=== PATIENT | male | born 1970 | race Caucasian/White ===

== ENCOUNTER → 2017-10-13 09:33 | Outpatient (CLI) | payer OTHER, SELFPAY ==
[2017-10-13 09:46] LABS: Bacteria Urine None Seen; RBC Urine None Seen (0-5/HPF); WBC Urine None Seen (0-5/HPF)
[2017-10-13 10:26] LABS: Add Manual Diff / Slide Review NO; Basophils Percent Auto 0.7 % (0-2); Eosinophils Percent Auto 2.5 % (2-4); Hematocrit 46.2 % (41-53); Hemoglobin 16.2 g/dL (13.5-17.5); Lymphocytes Percent Auto 26.8 % (25-40); Mean Corpuscular Hemoglobin 30.1 PG (26-34); Mean Corpuscular Volume 85.8 fL (80-100); Monocytes Percent Auto 6.6 % (3-14); Neutrophils Absolute Auto 5200 /uL (3000-5900); Neutrophils Percent Auto 63.4 % (50-75); Platelet Count 278 X10^3/uL (150-400); Red Blood Cell Count 5.38 X10^6/uL (4.5-5.9); Red Cell Distribution Width 13.1 % (11.6-14.8); White Blood Cell Count 8.2 X10^3/uL (4.5-11.0)
[2017-10-13 10:37] LABS: Appearance Urine UA CLEAR; Bilirubin Urine UA 3+ (NEGATIVE); Color Urine UA YELLOW; Glucose Urine UA 1+ g/dL (Negative); Ketones Urine UA NEGATIVE (NEGATIVE); Leukocyte Esterase Urine UA NEGATIVE (NEGATIVE); Nitrite Urine UA Negative (Negative); Occult Blood Urine UA NEGATIVE (Negative); Protein Urine UA TRACE (Negative); Specific Gravity Urine UA 1.025 (1.000-1.035); Urobilinogen Urine UA 0.2 E.U./dL (0.2)
[2017-10-13 10:52] LABS: Culture Indicated Urine Cult Not Indicated; Mucus Urine 1+ (Negative); Sperm Urine 1+
[2017-10-13 11:11] LABS: BUN Creatinine Ratio 18.8 (6-22); Calcium 9.6 mg/dL (8.4-10.2); Estimated Glomerular Filt Rate > 60.0 mL/min (>60); Glucose 181 mg/dL (70-100); HEMOLYSIS 22 (0-50); Potassium 4.3 mmol/L (3.4-5.1); Sodium 136 mmol/L (137-145)
[2017-10-13 11:52] LABS: Ictotest Urine Negative (Negative)
[2017-10-16 01:52] LABS: Hemoglobin A1C% w Est Avg Glu 7.2 % (4.0-6.0)
== END ==
PROVIDERS: PCP Orthopaedic Surgery; Visit Provider Orthopaedic Surgery
DX: Z01.818 Encounter for other preprocedural examination (principal); Z01.812 Encounter for preprocedural laboratory examination; N39.9 Disorder of urinary system, unspecified; R73.09 Other abnormal glucose
CPT/HCPCS: 36415; 80048; 81001; 83036; 85025; 93005

== ENCOUNTER 2017-10-30 11:37 | Inpatient (IN) | payer OTHER, SELFPAY ==
[2017-10-17 15:57] VITALS: BMI 34.3
[2017-10-30] VITALS (14 sets, daily range): BP systolic 105–127; BP diastolic 64–91; PULSE 68–87; RESP 10–17; TEMP 36–37.2; O2SAT 92–100; BMI 34.3
--- NOTE | 2017-10-30 | DI.RAD.S_ITS ---
PROCEDURE: XR KNEE LT 1TO2V INDICATIONS: TOTAL LEFT KNEE TECHNIQUE: 3 view(s) of the knee acquired. COMPARISON: None. FINDINGS: Bones: Patient is status post knee joint arthroplasty. Hardware components are in expected positions. Visualized bony structures are intact. Soft tissues: Overlying postoperative changes are noted. IMPRESSION: Normal alignment after left total knee arthroplasty, with a surgical drain overlying the operative bed. Dictated by: Brian Moralez M.D. on 10/30/2017 at 18:55 Approved by: Brian Moralez M.D. on 10/30/2017 at 18:56
[2017-10-30] MEDS: LACTATED RINGERS 1,000 ML 42 ML IV ×3 (12:15→16:49)
[2017-10-30] MEDS: VANCOMYCIN 1,000 MG/200 ML FROZ.PIGGY 200 MG IV (13:13)
--- NOTE | 2017-10-30 14:58 | PM.PREOP ---
Pre-operative Note Interval Note Pre-op Check: History & Physical Reviewed by Physician
[2017-10-30] MEDS: CEFAZOLIN 1 GM VIAL 2 GM IV (15:00)
--- NOTE | 2017-10-30 15:02 | P.OP_ITS ---
Operative Date/Time/Diagnoses - Date of procedure: 10/30/17 Time of procedure: 14:59 Pre-op diagnosis: Left knee OA Post-op diagnosis: same Procedure & Clinicians Procedure: Left total knee Same procedure as scheduled: Yes Indications: The patient has had progressively worsening left knee pain with radiographic changes consistent with arthritis. Non-operative management has failed and the patient has requested total knee replacement. The risks, benefits and alternatives to surgery were discussed with the patient prior to proceeding. Risks discussed included, but were not limited to, failure to relieve pain, stiffness, infection, nerve damage, deep venous thrombosis, pulmonary embolism, stroke, coma, heart attack, permanent paralysis and , as well as the potential need for eventual revision of the prosthetic. Surgeon: Concepción Christiansen Asset Protection Greeter: Flori Whitaker Anesthesia Type: General and Spinal Operative Notes Findings: Severe left knee OA Closure Type: primary Specimen(s): none sent Implants & Drains: Christiansen and Nephew Marcin BCS2 femur 8, tibia 7, poly 9, patella 38 Applied: drain(s) Estimated Blood Loss (mL): 250 Blood products transfused: none Procedure in detail: The patient was seen in the pre-operative area, where the patient identified the left knee as the operative site and this was marked with my initials. The patient received pre-operative antibiotics, and was taken to the operating room and placed on the operative table in the supine position. After satisfactory anesthesia, a knife setter out was performed. The left leg was encircled with a tourniquet about the proximal thigh, and the leg was prepared from the toes to the tourniquet with ChloroPrep in the usual fashion and draped through sterile drapes. The leg was elevated and exsanguinated with Eschmark bandage and the tourniquet inflated to [250] mmHg pressure. The knee was approached through an approximately 18 cm incision centered over the patella and carried into the knee through a medial parapatellar arthrotomy. A portion of the medial and lateral meniscus was resected. Soft tissue was carefully mobilized around the patella the patella was measured with a caliper. Bone was resected from the patella and the patellar height was reconstituted with up an appropriate sized patellar component. For a cover was then placed on the patella. A small amount of additional medial and lateral meniscus was resected. The visionary guide fit well to the distal femur. It looked like an appropriate distal femoral cut and the cut was made without difficulty. The rotation was assessed and the appropriate size femoral guide was placed on the distal femur and finishing cuts were made. There is no evidence of notching. The anterior, posterior and chamfer cuts were then made. The posterior osteophytes and soft tissues were then removed. The posterior capsule was injected with part of a mixture of 60 ml 0.25% Marcaine mixed with 20 ml Exparel for post operative pain control. The remainder of this mixture was injected into the capsule and subcutaneous tissues during cement curing. The tibia was prepared and the visionaire guide fit well to the distal tibia. The rotation was assessed. The patient was placed in extension residual medial and lateral meniscus as well as any residual bone was carefully resected. 3mm additional tibia was resected. It was clearly too tight and I opened another saw blade and used both the +2mm cut as well as the 2mm recutting guide. Hemostasis was achieved especially posteriorly. Additional local was injected into the posterior capsule. The extension gap was assessed and additional releases for gap balancing were performed as necessary. It was checked with the gap flight crew scheduler. A few small puncture incisions were made in the MCL to further balance the knee. The femoral component was trial was placed and the notch was finished. Trial tibial and femoral components were then placed and the knee placed through a range of motion. Range of motion was [0-130], with good stability throughout the range. The trials were then removed, and the tibia was finished. The bone was prepared with pulsatile lavage, and dried with a sponge. Cement was applied and the final prosthetics placed. Excess cement was removed during and after cement curing. A brief Betadine soak was performed. After confirming there was no extruded cement posteriorly, the final tibial insert was placed. The knee was copiously irrigated and the tourniquet deflated. Hemostasis was obtained with the [Aquamantys system]. A drain was placed and brought out superolaterally. The capsule was closed with interrupted # 1 black braided suture. The subcutaneous layer was closed with barbed sutures, and the skin with a running 3 -0 V-Lock suture and Surgical glue. An Aquacel Ag dressing was applied and the patient was taken to recovery having tolerated the procedure well. Complications: none Condition: stable Disposition: Acute Care Plan for aftercare: The patient will be maintained on a standard total knee replacement protocol with weight bearing as tolerated. The patient will receive aspirin and sequential compression devices for DVT prophylaxis. The patient will be discharged home when safe for the home environment.
--- NOTE | 2017-10-30 15:46 | SUR.OPER ---
Supine on padded OR bed. Pillow under head, arms secured on padded armboards <90 degree abduction. Safety belt across torso. Non-operative leg secured with tape over blanket over lower leg. Operative leg secured in DeMayo/Fran positioner. Foam padded brace at thigh of operative leg.
[2017-10-30] MEDS: POVIDONE-IODINE 15 ML, SODIUM CHLORIDE 0.9% 250 ML TOP (16:08)
[2017-10-30] MEDS: BUPIVACAINE LIPOSOME 266 MG/20 ML VIAL INJ (16:11)
[2017-10-30] MEDS: BUPIVACAINE 0.25% W/ EPI 50 ML VIAL INJ (16:12)
--- NOTE | 2017-10-30 18:25 | SUR.PHASEI ---
REPORT CALLED TO ASHLEY VENEGAS ON ACUTE CARE FLOOR. PT IN STABLE CONDITION, VSS. IV SITE CLEAR AND INFUSING WITHOUT DIFFICULTLY. DRSG TO OPERATIVE KNEE C/D/I. DRAIN REMAINS CLAMPED AT THIS TIME. PT SITTING UP AND DRINKING COFFEE WITHOUT ANY DIFFICULTLY. PT DENIES ANY NAUSEA OR DISCOMFORT. OPERATIVE EXTREMITY WARM TO TOUCH, +PULSES AND CAP REFILL WNL. PT ABLE TO FEEL LOWER EXTREMITY R/T SPINAL.
[2017-10-30] MEDS: LACTATED RINGERS 1,000 ML 125 ML IV (19:30)
[2017-10-30] MEDS: ONDANSETRON 4 MG/2 ML INJ IV (19:52)
[2017-10-30] MEDS: METOCLOPRAMIDE 10 MG/2 ML INJ IV (20:30)
--- NOTE | 2017-10-30 21:15 | PC.NURSE ---
POST-OP Received pt at approximately 1840 via bed, accompanied by INDUSTRIAL GAS SERVICER. Ox3, pleasant and cooperative. states numbness/tingling to bilateral legs from toes to about upper thigh area. L knee reymundo wrap bandage intact, hemovac drain unclamped at 1930 via report. pt with nausea and 1 episode of emesis. medicated with PRN zofran and reglan, pt states nausea still present but no emesis. denies pain. MIVF running. SPORTS STATISTICIAN from home set up at bedside. oriented pt and significant other to room and call light. p[t [facility] a [facility], will communicate to oncoming RN to pass to day shift CM.
[2017-10-30] MEDS: DOCUSATE 100 MG CAPSULE PO (21:53)
[2017-10-30] MEDS: ATORVASTATIN 20 MG TABLET PO (21:53)
[2017-10-30] MEDS: NAPROXEN 250 MG TABLET 500 MG PO (21:53)
[2017-10-30] MEDS: ASPIRIN EC 81 MG TABLET PO (21:53)
[2017-10-30] MEDS: CEFAZOLIN VIAL 3 GM in SODIUM CHLORIDE 0.9% 100 ML 200 ML IV (22:22)
[2017-10-30] MEDS: METFORMIN HCL 500 MG TABLET 1000 MG PO (22:23)
[2017-10-31 02:01] VITALS: BP 115/74; PULSE 99; RESP 18; TEMP 37.3; O2SAT 94
[2017-10-31] MEDS: HYDROCODONE/ACET 5/325 TABLET 2 TAB PO ×3 (02:06→12:42)
[2017-10-31 03:36] VITALS: BP 112/65; PULSE 88; RESP 16; TEMP 37.7; O2SAT 94
[2017-10-31] MEDS: LACTATED RINGERS 1,000 ML 125 ML IV (03:55)
[2017-10-31 05:43] LABS: Hematocrit 38.7 % (41-53); Hemoglobin 13.3 g/dL (13.5-17.5)
--- NOTE | 2017-10-31 05:57 | PC.NURSE ---
Pt stood at bedside and tried to urinate;however, he was unable to void even after multiple attempts. Bladder scan: 688cc. straight cath output: 750cc. hemovac output at 0240: 200cc. no complaints of dizziness or lightheadedness. BP 112/65. ice packs applied on L.knee. ryan MIGUEL. VTO clamp drain for 1 hr. Total hemovac output for manufacturing shift supervisor was 250cc.
[2017-10-31] MEDS: CEFAZOLIN VIAL 3 GM in SODIUM CHLORIDE 0.9% 100 ML 200 ML IV (06:34)
[2017-10-31 07:17] VITALS: BP 106/67; PULSE 82; RESP 14; TEMP 36.7; O2SAT 97
[2017-10-31] MEDS: DOCUSATE 100 MG CAPSULE PO (08:06)
[2017-10-31] MEDS: ASPIRIN EC 81 MG TABLET PO (08:06)
[2017-10-31] MEDS: LISINOPRIL 20 MG TABLET PO (08:06)
[2017-10-31] MEDS: NAPROXEN 250 MG TABLET 500 MG PO (08:07)
[2017-10-31] MEDS: METFORMIN HCL 500 MG TABLET 1000 MG PO (08:13)
[2017-10-31] MEDS: SODIUM CHLORIDE 0.9% FLUSH 10 ML IV (10:28)
--- NOTE | 2017-10-31 12:31 | P.DS_ITS ---
History of Present Illness Date Patient Seen: 10/31/17 Time Patient Seen: 12:28 Chief complaint: [id number] LEFT TOTAL KNEE ARTHROPLASTY Narrative: Status post left total knee arthroplasty Discharge Providers Date of admission: 10/30/17 11:37 Primary care physician: Concepción Christiansen MD Consults: 10/30/17 18:51 Consult to Discharge Planning Routine Comment: Consult to Physical Therapy Evaluate & Treat Comment: Physician Instructions: postop TKA protocol Consult to Respiratory Therapy Evaluate & Treat Comment: Physician Instructions: Evaluate and treat Discharge provider: Kimberly Del Rio PA-C Summary Discharge Diagnosis: Status post left total knee arthroplasty Hospital Course: Mike admitted for left total knee arthroplasty with Dr. Christiansen and he consented to procedure. Hospital course was unremarkable. On postop day 1. He is feeling well and wanted to go home. He was urinating and eating without difficulty or assistance. Dressing on left knee was CDI. All drains and catheter was removed prior to discharge. He has medications at home already. Status at Discharge Functional status at discharge: uses cane/walker Exam Vital Signs (past 8 hours): Vital Signs - 8 hr 3 10/31/17 07:17 Temperature 98.1 F Pulse Rate 82 Respiratory Rate 14 Blood Pressure 106/67 Pulse Oximetry 97 Pulse Oximetry 97 Oxygen Delivery Method CPAP Oxygen Flow Rate 2 Narrative Exam Narrative: Patient is sitting at bedside chair in no acute distress. He is alert and oriented x3. Dressing on left knee is CDI. Hemovac in place but will be removed prior to discharge. Calves are soft, compressible, nontender bilaterally. Sensation intact to light touch throughout bilateral lower extremities. Pain is well controlled. Denies any chest pain or shortness of breath. Has been up ambulating with physical therapy today. Objective Labs Result Diagrams: 10/31/17 05:08 Labs: Laboratory Results - last 24 hr 10/31/17 05:08 Hgb 13.3 L Hct 38.7 L Discharge Plan Discharge Plan Patient Disposition: Home, Self-Care Discharge comment: DC home today after physical therapy this afternoon. Remove drain prior to discharge. Discharge Med Rec/Prescriptions Prescriptions: New aspirin 81 mg Tablet,Delayed Release (Dr/Ec) 81 mg PO BID Qty: 60 RF: 0 oxycodone-acetaminophen 5-325 mg Tablet 2 tab PO Q4HR PRN (Reason: Pain, Severe) Qty: 60 RF: 0 docusate sodium 100 mg Capsule 100 mg PO BID Qty: 60 RF: 0 Continue atorvastatin 20 mg Tablet 20 mg PO BEDTIME RF: 0 etodolac 300 mg Capsule 300 mg PO BID RF: 0 lisinopril 20 mg Tablet 20 mg PO DAILY RF: 0 acetaminophen [Tylenol Extra Strength] 500 mg Tablet 1,000 mg PO Q6H PRN (Reason: pain) RF: 0 metformin 1,000 mg Tablet 1,000 mg PO BID RF: 0 Follow up/Referrals: Concepción Christiansen MD [Primary Care Provider] - (Please follow up in 5-7 days with [facility]) Provider Discharge Instructions Activity: Total knee precautions Cold/Heat Therapy: Ice as needed Wound Care Report to your healthcare provider any signs of infection, such as:: chills, fever and increased pain Dressing: Please keep dressing in place for 10-14 days Visit Report/Discharge Packet Instructions: DI for Knee Replacement Discharge Data Primary Care Provider: Concepción Christiansen Attending Provider: Concepción Christiansen Admit Date/Time: 10/30/17 11:37 Quality VTE Deep Vein Thrombosis/Pulmonary Embolism Present on Admission: No
--- NOTE | 2017-10-31 12:32 | PT.IIE ---
Current Diagnoses Unilateral primary osteoarthritis, left knee (10/30/17) Surgery Performed Operation Date: 10/30/17 13:45 Actual Procedures p Total Knee Arthroplasty(Left) - Concepción Christiansen MD Surgical History (Last Reviewed 10/30/17 @ 18:54 by Mariposa Gastelum, RN) History of photorefractive keratectomy (Acute) Medical History (Last Updated 10/30/17 @ 18:55 by Mariposa Gastelum RN) Tonsillectomy planned (Acute) Arthritis (Acute) Chronic low back pain (Acute) Diabetes type 2, controlled (Acute) Dry skin (Acute) Hearing loss (Acute) Heartburn (Acute) History of bronchitis (Acute) History of headache (Acute) Impaired vision (Acute) Itchy skin (Acute) Knee pain, bilateral (Acute) Nocturia (Acute) Obstructive sleep apnea on CPAP (Acute) Osteoarthritis of left knee (Acute) Physical Therapy Inpatient Evaluation/Re-Eval M1 PT/OT-IP Prior Functional Status Start: 10/31/17 12:21 Freq: NEEDED Status: Active Protocol: Document 10/31/17 12:21 AB (Rec: 10/31/17 12:32 AB [id number]) Medical Review Prior Functional Status Medical History Reviewed Yes Mobility and Gait pt stated that he is indpendent with all mobilities and ambulation without AD Social History Household Members spouse children Living Arrangements House Number of Floors (Floors) Two Floors Number of Stairs To Enter/Railing? 3 steps with R rail to enter 13 steps wiht L rail ascending to get to bedroom level Home Environment Standard Height Toilet Walk in Shower Home Equipment Four Wheel Walker Straight Cane Hand Held Shower Employment Status Garbage Collector Employed Additional Social History Comment pt stated that he will be off work for ~ 1month. works as an IT. spouse also works but has flexible hours and can assist pt at home. M2 PT-IP Current Condition Start: 10/31/17 12:21 Freq: NEEDED Status: Active Protocol: Document 10/31/17 12:21 AB (Rec: 10/31/17 12:32 AB [id number]) Physical Therapy Current Condition Current Condition Evaluation Date 10/31/17 Treatment Diagnosis s/p L TKA Onset Date 10/30/17 Weight Bearing Status Weight Bearing Status Weight Bear as Tolerated M3 PT-IP Subjective Start: 10/31/17 12:21 Freq: NEEDED Status: Active Protocol: Document 10/31/17 12:21 AB (Rec: 10/31/17 12:32 AB [id number]) Subjective Physical Therapy Visit Type Type Initial Evaluation Visit Start Time 09:15 Visit Stop Time 10:28 Total Visit Minutes 73 Number of LAND TITLE EXAMINER Visits 0 Physical Therapy Visit Comments Patient Comments pt agreeable to do therapy Therapy Pain Assessment Pain When Pain Assessed At Rest Pain Present Pain Present Pain Reported Location Left Knee Intensity 2 Scale Used Numeric (1 - 10) Pain Management Techniques Apply Cold Timing of Activity with Medications M4 PT-IP Mobility and Gait Start: 10/31/17 12:21 Freq: NEEDED Status: Active Protocol: Document 10/31/17 12:21 AB (Rec: 10/31/17 12:32 AB [id number]) PT-Bed Mobility Assessment Supine to Sit Supine to Sit Standby Assistance Sit to Supine Sit to Supine Standby Assistance PT-Transfer Assessment Equipment Transfer Assistive Device Gait Belt Front Wheeled Walker Orthotic/Prosthetic Devices or Brace: No Transfers Transfer Destination Bed Chair Transfer Technique Stand Step Pivot Transfer Ability Level of Assist Standby Assistance Gait Assessment Gait Gait Assistance Required: Standby Assistance Contact Guard Assist Distance (Feet) (feet) 125 Able to Maintain Weight Bearing Status Yes During Gait Assistive Devices Assistive Device Gait Belt Front Wheeled Walker 4 Wheeled Walker Orthotic/Prosthetic Devices or Brace: No Gait Deviations General Gait Pattern Antalgic Decreased Stride Length Decreased Feet Clearance Step-to Gait Factors Limiting Gait Function Factors Limiting Gait Function Decreased Activity Tolerance Decreased Strength Pain Poor Balance Poor Safety Awareness Comments Gait Comments assessed safety with use of FWW and then with 4WW as pt has 4WW at this time to use at home. pt was able to manage 4WW safely during ambulation Stair Climbing Assessment Evaluation Level of Assist On Stairs Minimal Assistance Devices Stair Climbing Assistive Devices Left Railing Right Railing Technique/Endurance Stair Climbing Direction Ascend and Descend Stair Climbing Technique Step to Step Number of Steps Climbed 3 Query Text: Stair Climbing Set # Repetitions (reps) 4 Comments Stair Climbing Comments pt completed up/down 3 steps using R rail ascending min A and cues. pt holds on to rail with B hands. pt completed 3 steps again with L rail ascending CGA and cues. spouse instructed on how to assist pt. PT-Balance Assessment Sitting Balance and Reactions Static Sitting Balance Ability Good Dynamic Sitting Balance Ability Good Standing Balance and Reactions Static Standing Balance Ability Fair Dynamic Standing Balance Ability Fair M5 PT-IP Objective Assessments Start: 10/31/17 12:21 Freq: NEEDED Status: Active Protocol: Document 10/31/17 12:21 AB (Rec: 10/31/17 12:32 AB [id number]) Orientation Orientation/Cognition Level of Alertness Alert Orientation Name Age Birthday Month Date Year Day of Week Place Situation Safety Awareness Understands Safety Issues Gross Range of Motion Lower Extremity ROM Assessment Left Impaired Strength Lower Extremity Strength Assessment Left Impaired Hip 4/5 Knee 4-/5 Ankle 5/5 M6 PT-IP Treatment Start: 10/31/17 12:21 Freq: NEEDED Status: Active Protocol: Document 10/31/17 12:21 AB (Rec: 10/31/17 12:32 AB [id number]) Physical Therapy Treatment Education Education Provided Precautions Weight Bearing Status Post-Op Packet Safety M7 PT-IP Assessment and Plan Start: 10/31/17 12:21 Freq: NEEDED Status: Active Protocol: Document 10/31/17 12:21 AB (Rec: 10/31/17 12:32 AB [id number]) PT Summary Assessment and Plan Potential Rehabilitation Potential Good Status of Condition at Evaluation Stable Summary Impairments Pain ROM Strength Balance Bed Mobility Transfers Gait Activity Tolerance Assessment Summary pt requiring 1 person assist with mobility and spouse able to assist pt. pt is also set up for outpt PT already. Goals Bed Mobility Goal Independent Transfer Goal Independent Gait Goal Independent Gait Distance 150 Other Goals up/down 3 steps with one rail SBA Days to Meet Goals 3 Frequency of Treatment Frequency Of Treatment Twice a Day Treatment Plan Physical Therapy Treatment Plan Bed Mobility Training Transfer Training Gait Training Therapeutic Exercise Balance Retraining Post Op Education Discharge Planning Hot or Cold Pack Neuromuscular Re-ed Coordination Retraining Manual Therapy Other Recommendations and Next Treatment ambulation, stair climbing, Focus caregiver training Recommendations To Nursing Amount of Assist Needed 1 Person Assist Discharge Recommendations PT Discharge Recommendations Home with Assistance Outpatient PT Provider Visit Care Team Role Provider Type Concepción Christiansen MD Admit Provider Physician Attending Provider Primary Care Provider Specialty: Orthopedic Surgery
--- NOTE | 2017-10-31 13:00 | CM.DANOTE ---
DCP: assessment: case received, EMR reviewed, d/c to home order noted, met with pt and his Corby. Introduced self and role. DCP template filled out with info currently available. Pt is a 46 year old male who admitted yesterday for a planned L TKA. Surgeon: Dr. Lucille Christiansen Payer: [facility] Pt and his have worked with PT today says they feel comfortable with the plan for home later today, after the 2nd PT session. Pt has all DME needed and outpt PT is set up. No concerns re d/c today expressed by pt and or noted by this DCPlanner.
--- NOTE | 2017-10-31 15:07 | PC.NURSE ---
1506 Pt dcd to home with family. Escorted out via w/c. Pt given dc instructions. Hemovac dcd at 1400, covered site with guaze/tegaderm and the Alexander wrap to LLE reapplied.
== END 2017-10-31 15:06 | disposition home or self-care (01) | DRG 470 ==
PROVIDERS: Admitting Provider Orthopaedic Surgery; PCP Orthopaedic Surgery; Visit Provider Orthopaedic Surgery
PROC: 0SRD0JZ Replacement of Left Knee Joint with Synthetic Substitute, Open Approach (ICD-10-PCS; CPT 27447; principal; 2017-10-30 13:45)
DX: M17.12 Unilateral primary osteoarthritis, left knee (principal); G47.33 Obstructive sleep apnea (adult) (pediatric); E11.9 Type 2 diabetes mellitus without complications; Z87.891 Personal history of nicotine dependence; Z79.84 Long term (current) use of oral hypoglycemic drugs
CPT/HCPCS: 36415; 73560; 85014; 85018; 94760; 97161; 97530; C1776; C9290; J0690; J2250; J2274; J2405; J2704; J2765; J3370

== ENCOUNTER → 2022-02-22 10:41 | Outpatient (CLI) | payer OTHER, SELFPAY ==
[2017-10-30 19:19] VITALS: BMI 34.3
[2022-02-22 11:52] LABS: COVID19 -Nasal RAPID Negative (Negative)
== END ==
PROVIDERS: PCP Nurse Practitioner; Referring Provider Orthopaedic Surgery; Visit Provider Orthopaedic Surgery
DX: Z20.822 Contact with and (suspected) exposure to COVID-19 (principal)
CPT/HCPCS: 87635; C9803

== ENCOUNTER 2022-02-24 08:08 | Day surgery (SDC) | payer OTHER, SELFPAY ==
[2017-10-30 19:19] VITALS: BMI 34.3
[2022-02-15 13:42] VITALS: BMI 34.2
[2022-02-24] VITALS (13 sets, daily range): BP systolic 99–120; BP diastolic 62–81; PULSE 70–86; RESP 14–21; TEMP 36.1–37.6; O2SAT 91–99; BMI 34.2
--- NOTE | 2022-02-24 06:00 | DI.RAD.S_ITS ---
PROCEDURE: XR KNEE RT 1TO2V INDICATIONS: TKA right TECHNIQUE: 3 view(s) of the knee acquired. COMPARISON: [facility], CR, XR KNEE LT 1TO2V, 10/30/2017, 18:00. FINDINGS: Bones: Patient is status post knee joint arthroplasty. Hardware components are in expected positions. Visualized bony structures are intact. Soft tissues: Overlying postoperative changes are noted. IMPRESSION: Postop changes from right total knee arthroplasty with anatomic right knee alignment. Dictated by: Tripp Palacio M.D. on 02/24/2022 at 15:04 Approved by: Tripp Palacio M.D. on 02/24/2022 at 15:04
[2022-02-24] MEDS: LACTATED RINGERS 1,000 ML 100 ML IV ×3 (08:55→16:00)
[2022-02-24] MEDS: CELECOXIB 200 MG CAPSULE PO ×2 (09:00→09:01)
[2022-02-24] MEDS: ACETAMINOPHEN 325 MG TABLET 975 MG PO (09:02)
[2022-02-24] MEDS: VANCOMYCIN 1,000 MG/200 ML PIGGYBACK 200 MG IV (09:55)
--- NOTE | 2022-02-24 10:40 | PM.PREOP ---
Pre-operative Note COVID-19 COVID-19 status: Negative Interval Note History & Physical reviewed/Exam performed by Physician: Yes Changes to H&P: No
--- NOTE | 2022-02-24 10:40 | PM.OP.1 ---
Operative Date/Time/Diagnoses Date of procedure: 02/24/22 Time of procedure: 11:10 Pre-op diagnosis: Right knee OA Post-op diagnosis: same Procedure & Clinicians Procedure: Right total knee arthroplasty Same procedure as scheduled: Yes Indications: The patient has had progressively worsening right knee pain with radiographic changes consistent with arthritis. Non-operative management has failed and the patient has requested total knee replacement. The risks, benefits and alternatives to surgery were discussed with the patient prior to proceeding. Risks discussed included, but were not limited to, failure to relieve pain, stiffness, infection, nerve damage, deep venous thrombosis, pulmonary embolism, stroke, coma, heart attack, permanent paralysis and , as well as the potential need for eventual revision of the prosthetic. Surgeon: Concepción Christiansen Supervisor Seaming: Ximena Kellogg Anesthesia Type: General and Spinal Operative Notes Findings: Severe right knee osteoarthritis, good stability, good bone Closure Type: primary Prosthetic devices, grafts, tissues, transplants, or devices: [employer] BCS 2 size 7 femur, size 7 tibia, +10 poly, 38 mm round patella Estimated Blood Loss (mL): 250 Blood products transfused: none Tourniquet time (min): 104 Procedure in detail: The patient was seen in the pre-operative area, where the patient identified the right knee as the operative site and this was marked with my initials. The patient received pre-operative antibiotics, and was taken to the operating room and placed on the operative table in the supine position. After satisfactory anesthesia, a manager outreach out was performed. The right leg was encircled with a tourniquet about the proximal thigh, and the leg was prepared from the toes to the tourniquet with ChloroPrep in the usual fashion and draped through sterile drapes. The leg was elevated and exsanguinated with Eschmark bandage and the tourniquet inflated to [250] mmHg pressure. The knee was approached through an approximately 18 cm incision centered over the patella and carried into the knee through a medial parapatellar arthrotomy. A portion of the medial and lateral meniscus was resected. Soft tissue was carefully mobilized around the patella the patella was measured with a caliper. Bone was resected from the patella and the patellar height was reconstituted with up an appropriate sized patellar component. A cover was then placed on the patella. A small amount of additional medial and lateral meniscus was resected. The distal femur was cut at 5?. A [+2] cut was used. It looked like an appropriate distal femoral cut and the cut was made without difficulty. An extramedullary guide was used for the tibial cut. 10 mm was resected off the least affected side.The tibia was prepared. The rotation was assessed. The patient was placed in extension residual medial and lateral meniscus as well as any residual bone was carefully resected. [No] additional tibia was resected. Hemostasis was achieved especially posteriorly. Additional local was injected into the posterior capsule. The extension gap was assessed and additional releases for gap balancing were performed as necessary. It was checked with the gap websphere commerce consultant. The rotation was assessed and the appropriate size femoral guide was placed on the distal femur and finishing cuts were made. There was minimal feathering of the anterior cortex without significant evidence of notching. The anterior, posterior and chamfer cuts were then made. The posterior osteophytes and soft tissues were then removed. The posterior capsule was injected with part of a mixture of 60 ml 0.25% Marcaine mixed with 20 ml Exparel for post operative pain control. The femoral component trial was placed and the notch was finished. The rotation was specifically checked. The component was posteriorized about 1 mm. The remainder of this mixture was injected into the capsule and subcutaneous tissues during cement curing. The tibial and femoral components were then placed and the knee placed through a range of motion. Range of motion was [0-130], with good stability throughout the range. The trials were then removed, and the tibia was finished. The bone was prepared with pulsatile lavage, and dried with a sponge. Cement was applied and the final prosthetics placed. Excess cement was removed during and after cement curing. A brief Betadine soak was performed. After confirming there was no extruded cement posteriorly, the final tibial insert was placed. The knee was copiously irrigated and the tourniquet deflated. Hemostasis was obtained with the [Bovie cautery]. A drain was placed and brought out superolaterally. The capsule was closed with interrupted nonabsorbable suture. The subcutaneous layer was closed with barbed sutures, and the skin with a running 3-0 V-Lock suture and Surgical glue. An Aquacel Ag dressing was applied and the patient was taken to recovery having tolerated the procedure well. Complications: none Post-operative Condition: stable Disposition: same day surgery Plan for aftercare: The patient will be maintained on a standard total knee replacement protocol with weight bearing as tolerated. The patient will receive aspirin and sequential compression devices for DVT prophylaxis. The patient will be discharged home when safe for the home environment.
[2022-02-24] MEDS: CEFAZOLIN 2 GM/100 ML PREMIX 100 ML IV (11:00)
--- NOTE | 2022-02-24 12:03 | SUR.OPER ---
Supine on padded OR bed. Pillow under head, arms secured on padded armboards <90 degree abduction. Safety belt across torso. Non-operative leg secured with tape over blanket over lower leg. Operative leg secured in DeMayo/Fran/Nathe positioner. Foam padded brace at thigh of operative leg.
[2022-02-24] MEDS: BUPIVACAINE LIPOSOME 266 MG/20 ML VIAL INJ (12:17)
[2022-02-24] MEDS: TRANEXAMIC ACID 1,000 MG VIAL 2000 MG INJ ×2 (12:18→14:01)
[2022-02-24] MEDS: BUPIVACAINE 0.25% (PF) 60 ML, EPINEPHrine 0.3 MG INJ (12:18)
--- NOTE | 2022-02-24 16:19 | PT.IIE ---
Current Diagnoses Bilateral primary osteoarthritis of knee (02/24/22) Surgery Performed Operation Date: 02/24/22 10:45 Actual Procedures p Total Knee Arthroplasty(Right) - Concepción Christiansen MD Surgical History (Last Updated 02/15/22 @ 13:49 by Eulalia Chen, RN) History of photorefractive keratectomy History of total left knee replacement (10/30/17) Medical History (Last Updated 02/15/22 @ 13:51 by Eulalia Chen RN) Arthritis Chronic low back pain Diabetes type 2, controlled Dry skin Hearing loss Heartburn History of bronchitis History of headache HLD (hyperlipidemia) HTN (hypertension) Impaired vision Itchy skin Knee pain, bilateral Nocturia Obstructive sleep apnea on CPAP Osteoarthritis of left knee Tonsillectomy planned Physical Therapy Inpatient Evaluation/Re-Eval M1 PT/OT-IP Prior Functional Status Start: 02/24/22 17:09 Freq: NEEDED Status: Active Protocol: Document 02/24/22 16:19 AB (Rec: 02/24/22 17:26 AB [id number]) Medical Review Prior Functional Status Medical History Reviewed Yes Communication able to make needs known Mobility and Gait pt stated that he is independent with all mobilities and ambulation without AD Social History Household Members spouse,children Living Arrangements House Number of Floors (Floors) Two Floors Number of Stairs To Enter/Railing? 3 steps to enter with R side shelves 13 steps L rail ascending to bedroom level Home Environment Standard Height Toilet,Walk in Shower Home Equipment Four Wheel Walker,Straight Cane Employment Status Self-Employed Additional Social History Comment pt toilet safety frame pt has an adjustable bed works as in IT M2 PT-IP Current Condition Start: 02/24/22 17:09 Freq: NEEDED Status: Active Protocol: Document 02/24/22 16:19 AB (Rec: 02/24/22 17:26 AB [id number]) Physical Therapy Current Condition Current Condition Evaluation Date 02/24/22 Treatment Diagnosis s/p R TKA; difficulty in walking Onset Date 02/24/22 M3 PT-IP Subjective Start: 02/24/22 17:09 Freq: NEEDED Status: Active Protocol: Document 02/24/22 16:19 AB (Rec: 02/24/22 17:26 AB [id number]) Subjective Physical Therapy Visit Type Type Initial Evaluation Visit Start Time 16:19 Visit Stop Time 17:06 Total Visit Minutes 47 Number of VICE PRESIDENT PRECISION MARKET INSIGHTS Visits 0 Physical Therapy Visit Comments Patient Comments agreeable to do PT Therapy Pain Assessment Pain When Pain Assessed At Rest Pain Present Pain Present Pain Reported Location Left Knee Intensity 2 Scale Used increases with mobility Pain Behaviors Guarding Pain Management Techniques Apply Cold,Distraction, Elevation,Modification of Treatment,Re-positioning, Timing of Activity with Medications M4 PT-IP Mobility and Gait Start: 02/24/22 17:09 Freq: NEEDED Status: Active Protocol: Document 02/24/22 16:19 AB (Rec: 02/24/22 17:26 AB [id number]) PT-Bed Mobility Assessment Supine to Sit Supine to Sit Standby Assistance,Head of Bed Elevated Sit to Supine Sit to Supine Standby Assistance,Head of Bed Elevated PT-Transfer Assessment Sit to and From Stand Sit to and from Stand Minimal Assistance,1 Person Assistance,Use of Upper Extremities Equipment Transfer Assistive Device Gait Belt,Front Wheeled Walker Orthotic/Prosthetic Devices or Brace: No Transfers Transfer Destination Toilet Transfer Technique ambulated Transfer Ability Level of Assist Minimal Assistance,Use of Upper Extremities Comments Mobility Comments spouse in room with pt. pt agreeable to do PT. heel slides conducted prior to mobility. pt completed supine to sit SBA. able to sit on EOB SBA. pt can be impulsive. completed sit to stand min A and requested to use the toilet. ambulated to the toilet using FWW min A ~ 12 ft. pt. able to stand using FWW for support while spouse provides CGA with standing while using the toilet. pt then requested to sit on the toilet. turn and sat on the toilet using FWW min A and cues for safety. sit to stand from the toilet using grab bar min A. pt ambulated back to bed using FWW min A. completed sit to supine SBA. positioned pt in bed. call light and table placed within reach. caregiver training set up for tomorrow with spouse at 830 am . Gait Assessment Gait Gait Assistance Required: Minimum Assistance Distance (Feet) 12 Able to Maintain Weight Bearing Status Yes During Gait Assistive Devices Assistive Device Gait Belt,Front Wheeled Walker Orthotic/Prosthetic Devices or Brace: No Gait Deviations General Gait Pattern Antalgic,Decreased Stride Length,Decreased Feet Clearance,Wide Based Gait Factors Limiting Gait Function Factors Limiting Gait Function Decreased Activity Tolerance, Decreased Strength,Limited Range of Motion,Pain,Poor Balance,Poor Safety Awareness PT-Balance Assessment Sitting Balance and Reactions Dynamic Sitting Balance Ability Good Standing Balance and Reactions Static Standing Balance Ability Fair Dynamic Standing Balance Ability Fair Device Used FWW M5 PT-IP Objective Assessments Start: 02/24/22 17:09 Freq: NEEDED Status: Active Protocol: Document 02/24/22 16:19 AB (Rec: 02/24/22 17:26 [id number]) Orientation Orientation/Cognition Level of Alertness Alert Orientation Name,Age,Birthday,Month,Date, Year,Day of Week,Place, Situation Language Function Ability No Deficits Noted Safety Awareness Decreased Safety Awareness Memory Description No Deficits Noted Gross Range of Motion Lower Extremity ROM Impairments R knee flexion: ~ 50 deg Strength Lower Extremity Strength Assessment Right Impaired Hip 4-/5 Knee 3+/5 Coordination Assessment Gross Coordination Gross Coordination WNL Sensation Assessment Sensation Gross Sensation WNL Muscle Tone Muscle Tone WNL Yes M6 PT-IP Treatment Start: 02/24/22 17:09 Freq: NEEDED Status: Active Protocol: Document 02/24/22 16:19 AB (Rec: 02/24/22 17:26 AB [id number]) Physical Therapy Treatment Exercises Exercises Heel Slides Education Education Provided Precautions,Weight Bearing Status,Post-Op Packet,Safety M7 PT-IP Assessment and Plan Start: 02/24/22 17:09 Freq: NEEDED Status: Active Protocol: Document 02/24/22 16:19 AB (Rec: 02/24/22 17:26 [id number]) PT Summary Assessment and Plan Potential Rehabilitation Potential Good Status of Condition at Evaluation Evolving Summary Impairments Pain,ROM,Strength,Balance, Coordination,Sensation,Tone, Cognition,Bed Mobility, Transfers,Gait,Activity Tolerance Assessment Summary pt s/p R TKA and just had surgery this morning. pt requiring min A with mobility using FWW and can be impulsive . Caregiver training set up for tomorrow at 830 am. will continue to assess progress. Pt has outpt PT set up. Goals Bed Mobility Goal Independent Transfer Goal Independent,Front Wheeled Walker Gait Goal Independent,Front Wheel Walker Gait Distance 200 Other Goals up/down 3 steps SPC+ R wall/ shelving SBA up/down 13 steps L rail ascending SBA Days to Meet Goals 5 Frequency of Treatment Frequency Of Treatment Twice a Day Treatment Plan Physical Therapy Treatment Plan Bed Mobility Training,Transfer Training,Gait Training, Therapeutic Exercise,Balance Retraining,Post Op Education, Discharge Planning,Hot or Cold Pack,Neuromuscular Re-ed, Coordination Retraining,Manual Therapy Weight Bearing Status Weight Bearing Status Weight Bear as Tolerated Allowed Weight Bearing Amount (enter % RLE WBAT or #) (%) Recommendations To Nursing Amount of Assist Needed 1 Person Assist Discharge Recommendations PT Discharge Recommendations Home with Assistance, Outpatient PT Transportation Needs at Discharge Private Vehicle
[2022-02-24] MEDS: ACETAMINOPHEN 325 MG TABLET 650 MG PO (17:28)
[2022-02-24] MEDS: IBUPROFEN 400 MG TABLET PO ×2 (17:29→21:18)
--- NOTE | 2022-02-24 17:33 | PC.NURSE ---
Pt arrived from PACU at 1515, VSS, afebrile on RA. Initially he reports numbness to knees and below bilaterally. Then sensation progresses to full sensation in B LE's. KATIANA dressing is C/d/I with clean and dry acep wrap. He reports pain to R knee 2/10 and he is able to participate in PT this afternoon. at bedside supportive. Continuous monitoring. He tolerates 100% of dinner well. Awaitig pt to void. Bed alarm on, call light in reach.
[2022-02-24] MEDS: CEFAZOLIN VIAL 3 GM in SODIUM CHLORIDE 0.9% 100 ML IV (18:45)
[2022-02-24] MEDS: ASPIRIN EC 81 MG TABLET PO (21:18)
[2022-02-24] MEDS: ATORVASTATIN 20 MG TABLET PO (21:18)
[2022-02-24] MEDS: DOCUSATE 100 MG CAPSULE PO (21:19)
[2022-02-24] MEDS: OXYCODONE IR 10 MG TABLET PO (21:19)
[2022-02-25] VITALS: BP 111/61; PULSE 61; RESP 18; TEMP 37.1; O2SAT 98
[2022-02-25] MEDS: ACETAMINOPHEN 325 MG TABLET 650 MG PO ×3 (00:30→12:03)
[2022-02-25] MEDS: IBUPROFEN 400 MG TABLET PO ×4 (00:30→12:03)
[2022-02-25] MEDS: OXYCODONE IR 5 MG TABLET 10 MG PO ×3 (03:33→12:04)
[2022-02-25] MEDS: CEFAZOLIN VIAL 3 GM in SODIUM CHLORIDE 0.9% 100 ML IV (03:34)
[2022-02-25 04:00] VITALS: BP 109/68; PULSE 76; RESP 16; TEMP 36.9; O2SAT 98
[2022-02-25 07:32] LABS: Hematocrit 40.3 % (41-53); Hemoglobin 13.8 g/dL (13.5-17.5)
[2022-02-25 08:00] VITALS: BP 94/50; PULSE 83; RESP 16; TEMP 36.6; O2SAT 95
[2022-02-25] MEDS: METFORMIN HCL 500 MG TABLET PO (08:19)
[2022-02-25] MEDS: PANTOPRAZOLE DR 40 MG TABLET PO (08:19)
[2022-02-25] MEDS: lisinopriL 20 MG TABLET PO (08:19)
[2022-02-25] MEDS: DOCUSATE 100 MG CAPSULE PO (08:21)
[2022-02-25] MEDS: ASPIRIN EC 81 MG TABLET PO (08:21)
[2022-02-25 08:39] VITALS: RESP 18; O2SAT 97
--- NOTE | 2022-02-25 08:40 | PT.IPTN ---
Current Diagnoses Bilateral primary osteoarthritis of knee (02/24/22) Surgery Performed Operation Date: 02/24/22 10:45 Actual Procedures p Total Knee Arthroplasty(Right) - Concepción Christiansen MD Physical Therapy Treatment Note M2 PT-IP Current Condition Start: 02/24/22 17:09 Freq: NEEDED Status: Discharge Protocol: Document 02/24/22 16:19 AB (Rec: 02/24/22 17:26 AB [id number]) Physical Therapy Current Condition Current Condition Evaluation Date 02/24/22 Treatment Diagnosis s/p R TKA; difficulty in walking Onset Date 02/24/22 M3 PT-IP Subjective Start: 02/24/22 17:09 Freq: NEEDED Status: Discharge Protocol: Document 02/25/22 08:40 AB (Rec: 02/25/22 12:41 AB [id number]) Subjective Physical Therapy Visit Type Type Treatment Note Visit Start Time 08:40 Visit Stop Time 09:06 Total Visit Minutes 26 Number of BANDAGE WINDING MACHINE OPERATOR Visits 0 Physical Therapy Visit Comments Patient Comments agreeable to do PT; spouse in room for training Therapy Pain Assessment Pain When Pain Assessed At Rest Location Left Knee Intensity 2 Scale Used Numeric (0 - 10) Pain Management Techniques Distraction,Modification of Treatment,Re-positioning, Timing of Activity with Medications M4 PT-IP Mobility and Gait Start: 02/24/22 17:09 Freq: NEEDED Status: Discharge Protocol: Document 02/25/22 08:40 AB (Rec: 02/25/22 12:41 AB [id number]) PT-Bed Mobility Assessment Supine to Sit Supine to Sit Standby Assistance Sit to Supine Sit to Supine Standby Assistance PT-Transfer Assessment Sit to and From Stand Sit to and from Stand Contact Guard Assistance,1 Person Assistance,Use of Upper Extremities Equipment Transfer Assistive Device Gait Belt,Front Wheeled Walker Orthotic/Prosthetic Devices or Brace: No Transfers Transfer Destination Toilet Transfer Technique ambulated Transfer Ability Level of Assist Contact Guard Assistance,1 Person Assistance,Use of Upper Extremities Comments Mobility Comments spouse in room and assisted pt with bed mobility. spouse was able to put safety belt on pt and assisted pt with ambulation to the toilet using FWW. completed safely. spouse ambulated pt to the hallway towards the stair using FWW ~ 125 ft CGA and spouse was able to assist pt and provide cues. pt completed up/down steps using quad cane and R rail with spouse cueing and assisting pt. pt repeated x 2 sets. pt completed again using L rail and quad cane with spouse assisting. pt ambulated back to his room using fWW. agreed to sit on the chair. positioned on the chair. call light and table placed within reach. pt and spouse without any concerns. Gait Assessment Gait Gait Assistance Required: Contact Guard Assist Distance (Feet) 125 Able to Maintain Weight Bearing Status Yes During Gait Assistive Devices Assistive Device Gait Belt,Front Wheeled Walker Orthotic/Prosthetic Devices or Brace: No Gait Deviations General Gait Pattern Antalgic,Decreased Stride Length,Decreased Feet Clearance Factors Limiting Gait Function Factors Limiting Gait Function Decreased Activity Tolerance, Decreased Strength,Limited Range of Motion,Pain,Poor Balance,Poor Safety Awareness Stair Climbing Assessment Devices Stair Climbing Assistive Devices Small Base Quad Cane,Left Railing Technique/Endurance Stair Climbing Direction Ascend and Descend Stair Climbing Technique Step to Step Number of Steps Climbed 3 Stair Climbing Set # Repetitions (reps) 3 M5 PT-IP Objective Assessments Start: 02/24/22 17:09 Freq: NEEDED Status: Discharge Protocol: Document 02/24/22 16:19 AB (Rec: 02/24/22 17:26 AB [id number]) Orientation Orientation/Cognition Level of Alertness Alert Orientation Name,Age,Birthday,Month,Date, Year,Day of Week,Place, Situation Language Function Ability No Deficits Noted Safety Awareness Decreased Safety Awareness Memory Description No Deficits Noted Gross Range of Motion Lower Extremity ROM Impairments R knee flexion: ~ 50 deg Strength Lower Extremity Strength Assessment Right Impaired Hip 4-/5 Knee 3+/5 Coordination Assessment Gross Coordination Gross Coordination WNL Sensation Assessment Sensation Gross Sensation WNL Muscle Tone Muscle Tone WNL Yes M6 PT-IP Treatment Start: 02/24/22 17:09 Freq: NEEDED Status: Discharge Protocol: Document 02/25/22 08:40 AB (Rec: 02/25/22 12:41 AB [id number]) Physical Therapy Treatment Education Education Provided Safety M7 PT-IP Assessment and Plan Start: 02/24/22 17:09 Freq: NEEDED Status: Discharge Protocol: Document 02/25/22 08:40 AB (Rec: 02/25/22 12:41 AB [id number]) PT Summary Assessment and Plan Potential Rehabilitation Potential Good Summary Impairments Pain,ROM,Strength,Balance, Coordination,Sensation,Tone, Cognition,Bed Mobility, Transfers,Gait,Activity Tolerance Progress Towards Goals Progressing Toward Goals Assessment Summary caregiver training conducted and spouse was able to safely assist pt with mobility. pt plans to go home today. Goals Bed Mobility Goal Independent Transfer Goal Independent,Front Wheeled Walker Gait Goal Independent,Front Wheel Walker Gait Distance 200 Other Goals up/down 3 steps SPC+ R wall/ shelving SBA up/down 13 steps L rail ascending SBA Days to Meet Goals 5 Frequency of Treatment Frequency Of Treatment Twice a Day Treatment Plan Physical Therapy Treatment Plan Bed Mobility Training,Transfer Training,Gait Training, Therapeutic Exercise,Balance Retraining,Post Op Education, Discharge Planning,Hot or Cold Pack,Neuromuscular Re-ed, Coordination Retraining,Manual Therapy Weight Bearing Status Weight Bearing Status Weight Bear as Tolerated Allowed Weight Bearing Amount (enter % RLE WBAT or #) (%) Recommendations To Nursing Amount of Assist Needed 1 Person Assist Discharge Recommendations PT Discharge Recommendations Home with Assistance, Outpatient PT Transportation Needs at Discharge Private Vehicle
--- NOTE | 2022-02-25 09:14 | CM.DANOTE ---
DCP: Case received, EMR reviewed and met with patient. Patient's spouse,Corby, was also present for caregiver training. Introduced self and role. Was able to obtain information regarding patient's baseline activity level at home prior to his surgery. DCP assessment completed with information currently available. Patient is a 51 year old male who admitted yesterday morning to the care of the orthopedic team. PCP: Dr. Mcgowan. Payer: confirmed: [facility]. Patient came to the hospital for a surgical procedure. Patient had right total knee arthroplasty. Patient has history of osteoarthritis. Met with patient in his room. He is alert and oriented, was sitting up in bed, his spouse at bedside assisting him with ADLs. Confirmed that patient and spouse reside in [place]. He is independent at his baseline, he confirmed that he is still employed at [employer]. He has a couple of steps to get into his home, and 13 stairs, stated, he most likely will be staying downstairs. This is patient's second knee surgery. He had been doing outpatient P.T. at [facility]. He mentioned that he currently has not been using any DME supplies. P: DCP to continue to follow. Patient should be able to go home when he is deemed medically stable and works with P.T. Obdulia Ferrari RN/Application Support Discharge Planning/Care Management CM Discharge Assessment Start: 02/25/22 09:11 Freq: Status: Active Protocol: Document 02/25/22 09:11 (Rec: 02/25/22 09:13 [id number]) Discharge Planning Assessment Assigned [place] Obdulia Ferrari RN/Application Support Advance Directives? No Advance Directives on File No History Provided By Patient,Family Member,Medical Record Prior Living Arrangements House Household Members spouse,children Type of transporation used prior to Drives own vehicle admit Independent with ADL's Yes Is patient alert and oriented? Yes Caregiver for Another No Comment 4ww and cane. Patient/Family Preference OP PT Therapy Comment Patient had been using [facility] in [place] for his prior surgery. Comment . Comment entry and to second floor of home. Plans sleep on couch on main level until ready to do those 13 steps. Discharge Plan Home Transportation Arrangement Corby has been here for caregiver training and is taking him home today after the afternoon PT session. Referrals Initiated None needed Whiteboard Updated in Patient Room with Yes name and ext. # of [place] Review Status In Process Next Review Type Continued Stay Review Pre-Anesthesia Assessment Start: 02/15/22 13:42 Freq: Status: Complete Protocol: Document 02/15/22 13:42 CAB (Rec: 02/15/22 14:25 CAB [id number]) Pre-Anesthesia Assessment Patient Information Reviewed Via Phone Assessment Assessment Completed With Patient Diagnostic Results EKG Comment Outside Labs/ECG done, ECG only scanned, COVID screen @ 02/22/22 Primary Care Provider [facility] Seen Specialist in Last 12 Months Yes Specialist Seen Orthopedist Primary Language Bahamian Preferred Language Bahamian Bottom Finisher Required No Height 6 ft 3 in Weight 274 lb Body Mass Index (BMI) 34.2 Hearing Ability Normal Visual Assist Magnifying Glass Dentition Type Teeth, Natural Present Barriers to Learning None Hx Anesthesia Reactions Yes: PONV after colonoscopy Hx Family Anesthesia Reaction No Hx Malignant Hyperthermia No Hx Blood Transfusions No Anesthesia Review Requested No Bench Patternmaker Metal No alcohol intake current alcohol intake frequency a few times a month Smoking Status Former smoker Tobacco type cigarettes,cigars how long ago did patient quit smoking 20 years Substance Use Type does not use Pain Present Pain Reported Musculoskeletal Symptoms Abnormal Gait,Difficulty Walking,Joint Pain History of Falling (Recent or History of No ) Patient is completely paralyzed or No completely immobile Mental Status Oriented to own ability Is patient on oxygen? No Does patient have CARUSO/SOB No Hx Sleep Apnea Yes CPAP/BIPAP use prescribed and used routinely Will Bring CPAP/BIPAP DOS Yes Currently Taking a Beta Lacho No Can You Climb a Flight of Stairs Without Yes SOB Hx Chest Pain No Hx SOB No Hx Syncope or Dizziness No Anti-Coagulant Therapy No Has a Senior Sales Consultant No Cardiac Testing No Hx Pacemaker/ICD No Pacemaker Rep Required? No Diet Type At Home Regular dysphagia No Gastrointestinal Symptoms Reflux Bladder Pattern Nocturia Urinary Catheter Present No Hx Urinary Self Catheterization No Diabetes Yes Hx Drug Resistant Organism No Presence of External or Internal Medical Yes: Left knee prosthesis, Devices CPAP Have you had any close contact with Yes: Son had COVID 10/2021, pt someone diagnosed with COVID-19? tested negative Received a COVID vaccine? Yes Received all doses? No Marital Status Lives With spouse,children Prior Living Arrangements House Support System Spouse Does the Patient Have Assistance After Yes Surgery Patient Discharge Plan Description Return Home Comment Pt advised possible same day surgery per surgeon Feels Safe in Current Environment Yes Been Physically Hurt or Threatened By a No Person in Current Environment Do you have thoughts of harming yourself None or others? Are you currently considering suicide? No Do you have a plan to hurt yourself or No Plan others? Do You Have Any Spiritual Beliefs That No May Affect Your HC Choices? Do You Have Any Cultural Practices That No May Affect Your HC Choices? Comment Nondenominational Who Can We Speak to About Patient's Care Family, friends Identifying Code for Release of Patient Declines to issue Information Health Care Proxy/Next of Kin Corby () Health Care Proxy Emergency Contact Name Corby - Emergency Contact Advance Directives? No Advance Directives on File No Power of Healthcare Or Medical No PAC Instructions Durable medical equipment, Medications to take/avoid, Nasal antibiotic,No ETOH/ petroleum product on skin DOS, NPO,Pre-surgical wash,Sensory aids,Sturdy shoes/comfortable clothes,Do not bring valuables and remove jewelry
--- NOTE | 2022-02-25 10:34 | P.DS_ITS ---
History of Present Illness History of Present Illness Date Patient Seen: 02/25/22 Time Patient Seen: 10:34 Chief complaint: Right TKA *OPB* Narrative: Operative Date/Time/Diagnoses Date of procedure: 02/24/22 Time of procedure: 11:10 Pre-op diagnosis: Right knee OA Post-op diagnosis: same Procedure & Clinicians Procedure: Right total knee arthroplasty Same procedure as scheduled: Yes Indications: The patient has had progressively worsening right knee pain with radiographic changes consistent with arthritis. Non-operative management has failed and the patient has requested total knee replacement. The risks, benefits and alternatives to surgery were discussed with the patient prior to proceeding. Risks discussed included, but were not limited to, failure to relieve pain, stiffness, infection, nerve damage, deep venous thrombosis, pulmonary embolism, stroke, coma, heart attack, permanent paralysis and , as well as the potential need for eventual revision of the prosthetic. Surgeon: Concepción Christiansen Athletic Events Scorer: Ximena Kellogg Anesthesia Type: General and Spinal Operative Notes Findings: Severe right knee osteoarthritis, good stability, good bone Closure Type: primary Prosthetic devices, grafts, tissues, transplants, or devices: Christiansen and Nephew Marcin BCS 2 size 7 femur, size 7 tibia, +10 poly, 38 mm round patella Estimated Blood Loss (mL): 250 Blood products transfused: none Tourniquet time (min): 104 Discharge Providers Provider Discharge Date: 02/25/22 Primary care physician: ALEK Gómez Consults: 02/24/22 06:00 Consult to Anesthesiology Routine Comment: Consulting Provider: Anesthesiologist Reason for consultation: Regional block for post operative pain control 02/24/22 09:32 Consult to Respiratory Therapy Evaluate & Treat Comment: Physician Instructions: Evaluate and treat 02/24/22 13:21 Consult to Physician Routine Comment: consult to primary care provider for followup Consulting Provider: Concepción Christiansen Reason for consultation: Positive STOP BANG, management of obstructive sleep apnea Has provider been notified: Yes 02/24/22 15:46 Consult to Discharge Planning Routine Comment: Consult to Physical Therapy Evaluate & Treat Comment: Physician Instructions: postop TKA protocol Consult to Respiratory Therapy Evaluate & Treat Comment: Physician Instructions: Evaluate and treat Discharge provider: Ximena Kellogg PA-C Summary Hospital Course Discharge Diagnosis: Right knee OA, s/p right TKA Hospital Course: Mr Quintanilla's hospital course was unremarkable. On POD# 1 he was eating and voiding without difficulty and wanted to go home. His pain was well-controlled with oral medication and he had already received his post-operative pain and VTE medications for homegoing. He was evaluated by PT and felt to be safe for homegoing. Exam Vital Signs (past 8 hours): - 02/25/22 04:00 02/25/22 08:39 02/25/22 08:00 Temperature 98.4 F 97.9 F Pulse Rate 76 83 Respiratory Rate 16 18 16 Blood Pressure 109/68 94/50 L Pulse Oximetry 98 97 95 Oxygen Delivery Method Room Air Oxygen Flow Rate 0 Oxygen Delivery Method Room Air Oxygen Flow Rate 0 Narrative Exam Narrative: 5/5 strength in hip flexors, quadriceps, hamstrings, DF, PF, EHL on right. Sensation to light touch intact throughout RLE. Calves soft, compressible, nontender and without palpable cords or masses. KATIANA dressing is functioning, CDI. Objective Labs Result Diagrams: 02/25/22 07:06 Labs: Laboratory Results - last 24 hr 02/25/22 07:06 Hgb 13.8 Hct 40.3 L PFSH Medical History (Updated 02/15/22 @ 13:51 by Eulalia Chen RN) Arthritis Chronic low back pain Diabetes type 2, controlled Dry skin Hearing loss Heartburn History of bronchitis History of headache HLD (hyperlipidemia) HTN (hypertension) Impaired vision Itchy skin Knee pain, bilateral Nocturia Obstructive sleep apnea on CPAP Osteoarthritis of left knee Tonsillectomy planned Surgical History (Updated 02/15/22 @ 13:49 by Eulalia Chen RN) History of photorefractive keratectomy History of total left knee replacement (10/30/17) Social History household members: spouse and children Smoking Status: Former smoker alcohol intake: current Discharge Assessment & Plan Assessment and Plan Assessment: s/p RIGHT total knee arthroplasty Plan of Treatment: Discharge home, multimodal pain control, ASA 81 mg BID x 6 weeks for VTE prophylaxis, outpt PT scheduled to start 03/01/2022. Discharge Plan Discharge Plan Patient Disposition: Home Discharge orders & Medications Discharge Orders: Discharge (Order); Ordered 02/25/22 Ordered By: Ximena Kellogg Prescriptions: New oxycodone 5 mg Tablet 5 mg PO Q4H PRN (Reason: Pain, Moderate (4-6)) Qty: 1 0RF aspirin 81 mg Tablet,Delayed Release (Dr/Ec) 81 mg PO BID Qty: 1 0RF Rx Instructions: take BID x 6 weeks for VTE prophylaxis ibuprofen 400 mg Tablet 400 mg PO Q4HR Qty: 1 0RF Continued methocarbamol 500 mg Tablet 500 - 1,000 mg PO QID PRN (Reason: Muscle Pain) pantoprazole 40 mg Tablet,Delayed Release (Dr/Ec) 40 mg PO DAILY Ozempic 1 mg/dose (4 mg/3 mL) Pen Injector 2 mg SUBCUT QWEEK Label Comments: Injects every Sunday atorvastatin 20 mg Tablet 20 mg PO BEDTIME lisinopril 20 mg Tablet 20 mg PO DAILY acetaminophen [Tylenol Extra Strength] 500 mg Tablet 1,000 mg PO BID metformin 1,000 mg Tablet 500 mg PO QAM Follow up/Referrals: Lady Mcgowan ARNP [Primary Care Provider] - Concepción Christiansen MD [Physician] - As previously scheduled (Follow up w/ Gita Jones PA-C, on 03/07/2022 @ 1:00 pm at [facility] office in [place].) Diet/Activity/Treatments Diet: Diet as Tolerated Activity: Walk frequently! Cold/Heat Therapy: Ice to knee as needed for pain. Skin/Wound/Dressing Care Report to your healthcare provider any signs of infection, such as:: chills, fever, night sweats, unusual drainage and unusual redness Dressing: May remove MYNOR wrap and shower; ok to get battery pack wet, but try to keep out of direct shower spray. Leave KATIANA dressing on until follow up in office. After 5-7 days the batteries will , at which point you can detach/cut off battery pack and dispose of it. No bathing or otherwise soaking incision. Visit Report/Discharge Packet Instructions: DI for Knee Replacement Stand Alone Forms: Surgery Discharge Discharge Data Primary Care Provider: Lady Mcgowan Attending Provider: Concepción Christiansen Quality VTE Deep Vein Thrombosis/Pulmonary Embolism Present on Admission: No
--- NOTE | 2022-02-25 11:25 | PC.NURSE ---
doing well, ambulated w/ therapy today w/ FWW, here for caregiver training. R knee is reymundo wrapped, jessie drain is intact. d/c instructions per PA, PIV d/cd meds given prior to d/c. see d/c assessment.
[2022-02-25] MEDS: ONDANSETRON 4 MG ODT PO (12:04)
== END 2022-02-25 12:20 | disposition home or self-care (01) ==
LOC: OR 08:09 → AC 08:10
PROVIDERS: PCP Nurse Practitioner; Referring Provider Orthopaedic Surgery; Visit Provider Orthopaedic Surgery
PROC: 0SRC0JZ Replacement of Right Knee Joint with Synthetic Substitute, Open Approach (ICD-10-PCS; CPT 27447; principal; 2022-02-24 10:45)
DX: M17.11 Unilateral primary osteoarthritis, right knee (principal); E11.9 Type 2 diabetes mellitus without complications; E66.9 Obesity, unspecified; G47.33 Obstructive sleep apnea (adult) (pediatric); Z68.34 Body mass index [BMI] 34.0-34.9, adult
CPT/HCPCS: 27447; 36415; 73560; 85014; 85018; 97162; 97530; C1776; C1713; C9290; J0171; J0690; J2250; J2274; J2405; J2704; J3010